=== PATIENT | male | born 1985 | race Caucasian/White ===

== ENCOUNTER 2018-05-18 13:38 | Emergency (ER) | payer SELFPAY | END 2018-05-18 14:24 | disposition home or self-care (01) | LOC: MADERS 13:38 | DX: R20.2 Paresthesia of skin (principal); T43.225A Adverse effect of selective serotonin reuptake inhibitors, initial encounter; G89.29 Other chronic pain; M54.2 Cervicalgia; M54.5 Low back pain; K21.9 Gastro-esophageal reflux disease without esophagitis; J45.909 Unspecified asthma, uncomplicated; F25.9 Schizoaffective disorder, unspecified; Z79.899 Other long term (current) drug therapy; Z79.51 Long term (current) use of inhaled steroids | CPT/HCPCS: 99281 ==